=== PATIENT | male | born 1945 | race Caucasian/White ===

== ENCOUNTER → 2017-02-13 | Day surgery (SDC) | payer MEDICARE ==
[~2017-02-13] MED LIST: APPLE CIDER VI500 MG PO; ATORVASTATIN CA10 MG PO; BENZONATATE100 MG PO; CEFTRIAXONE SOD 1 GM/NS 50 ML 50 ML IV ONE; CHLORZOXAZONE500 MG PO; COMBIGAN EYE DRO5 ML OP; DEXAMETHASONE SOD PHOS INJ 4 MG/ML VIAL ONE; DIAZEPAM5 MG PO; DOXYCYCLINE HYC50 MG PO; EPHEDRINE SULFATE INJ 50 MG/10 ML SYR ONE; FENTANYL CITRATE/PF 100MCG/2 ML INJ ONE; LANTUS 3ML100 UNITS/ SC; LECITHIN1200 MG PO; LIDOCAINE HCL 2% LOCAL INJ 5 ML SDV VIAL INJ ONE; LISINOPRIL10 MG PO; LOTEMAX5 ML OP; METFORMIN HCL500 MG PO; MIDAZOLAM HCL 2 MG/2 ML VIAL ONE; MULTIVITAMINS1 EAC6 PO; NAPROXEN250 MG PO; NORCO 5-325 TA1 EACH PO; ONDANSETRON HCL INJ 2 MG/ML VIAL ONE; PROPOFOL IV EMULSION 10 MG/ML 20 ML VIAL ONE; SEVOFLURANE INHAL SOLN 250 ML PEN BTL ONE; STRESS RELIEF PO; SYSTANE 0.3-0.1 EACH OP; VASOPRESSIN INJ 20 UNIT/ML VIAL ONE; VITAMIN D400 UNIT PO; Vit C PO; Vitamin A PO; Vitamin E PO
--- NOTE | 2017-02-13 07:59 | Diagnostic Imaging Report ---
PROCEDURE:X-RAY ABDOMEN - KUB COMPARISON:Abdomen one view 01/30/2017. INDICATIONS:PREOPERATIVE XRAY FOR KIDNEY STONE SURGERY FINDINGS: There is a non-obstructed bowel-gas pattern. 3.9 mm calculus projects over the superior pole the left kidney. There are no calcifications projected over the right renal shadow, expected course of the ureters or bladder. There are no acute osseous abnormalities. The lung bases are clear. CONCLUSION: Left nephrolithiasis. Dictated by: Kody Marino M.D. on 02/13/2017 at 8:07 Electronically approved by: Kody Marino M.D. on 02/13/2017 at 8:07
--- NOTE | 2017-03-28 03:51 | Operative Report ---
DATE OF PROCEDURE: February 13, 2017 PREOPERATIVE DIAGNOSIS: Bilateral nephrolithiasis. POSTOPERATIVE DIAGNOSIS: Bilateral nephrolithiasis. PROCEDURES PERFORMED 1. Staged left-sided extracorporeal shockwave lithotripsy. 2. Supervision of fluoroscopy. No radiologist present. ANESTHESIA: General. COMPLICATIONS: None. CLINICAL SUMMARY: Mino Reyna is a 71-year-old man with bilateral nephrolithiasis. He is brought for ESWL. He is aware of the risks of bleeding, infection, injury to adjacent structures, need for additional procedures, and elected to proceed. OPERATIVE PROCEDURE IN DETAIL: Informed consent was verified. Mino Reyna was properly identified, taken to the operating room, placed on the lithotripsy table in supine position. Anesthesia was uneventfully begun. We could not visualize the right-sided stone. We did visualize in the upper shirin a 5-mm stone on the left-hand side. We proceeded with performing 3000 shocks of lithotripsy with some degree of fragmentation noted fluoroscopically. The patient was then uneventfully reversed from anesthesia and taken to the recovery room in stable condition. There were no complications to the procedure. Patient tolerated the procedure well. Explicit postop instructions were given. We will follow the patient up in the office. Job#: [id number] CF
== END | disposition home or self-care (01) ==
LOC: OR 05:58
PROVIDERS: ATTEND Urology
DX: N20.0 Calculus of kidney (principal); N40.0 Benign prostatic hyperplasia without lower urinary tract symptoms; R35.1 Nocturia; R81 Glycosuria; I10 Essential (primary) hypertension; E11.9 Type 2 diabetes mellitus without complications; Z79.82 Long term (current) use of aspirin; Z84.1 Family history of disorders of kidney and ureter
CPT/HCPCS: 36415; 50590; 74000; 82948; J0696; J1100; J2001; J2250; J2405

== ENCOUNTER 2017-04-04 05:35 | Observation (INO) | payer MEDICARE ==
[2017-04-01 14:42] LABS: BASOPHILS % 0.6 % (0.0-1.0); EOSINOPHILS # (AUTO) 0.1 (0.0-0.4); EOSINOPHILS % 1.7 % (0.0-6.0); HEMATOCRIT 44.3 % (38.2-49.6); HEMOGLOBIN 15.1 g/dL (14.0-18.0); LYMPHOCYTES % 28.3 % (18.0-39.1); MEAN CORPUSCULAR HEMOGLOBIN 31.3 pg (28-32); MEAN CORPUSCULAR HGB CONC 34.1 g/dL (31-35); MEAN CORPUSCULAR VOLUME 91.7 fL (81-99); MONOCYTES # (AUTO) 0.5 (0.2-0.8); MONOCYTES % 7.1 % (4.4-11.3); NEUTROPHILS # (AUTO) 4.4 (2.1-6.9); PLATELET COUNT 314 x10e3/uL (140-360); RED BLOOD COUNT 4.83 x10e6/uL (4.3-5.7); RED CELL DISTRIBUTION WIDTH 12.4 % (11.7-14.4)
--- NOTE | 2017-04-01 14:47 | Diagnostic Imaging Report ---
PROCEDURE: Frontal and lateral views of the chest. COMPARISON: 01/24/17 INDICATIONS: PRE OP SURGERY ON C SPINE SATURDAY FINDINGS: Lines/tubes: None. Lungs: The lungs are well inflated and clear. There is no evidence of pneumonia or pulmonary edema. Pleura: There is no pleural effusion or pneumothorax. Unchanged bilateral upper lung field calcifications, likely calcified pleural plaques. Heart and mediastinum: The heart and the mediastinum are normal. Bones: No acute bony abnormality. IMPRESSION: 1. No acute cardiopulmonary disease. 2. Unchanged bilateral upper lung field calcifications, likely calcified pleural plaques. Dictated by: Cachorro Crowder M.D. on 04/01/2017 at 14:56 Electronically approved by: Cachorro Crowder M.D. on 04/01/2017 at 14:56
[2017-04-01 14:53] LABS: INR 0.78; PROTHROMBIN TIME 11.2 seconds (11.9-14.5)
[2017-04-01 14:54] LABS: PARTIAL THROMBOPLASTIN TIME 25.7 seconds (23.8-35.5)
[2017-04-01 15:25] LABS: ANION GAP 12.9 mmol/L (8-16); BLOOD UREA NITROGEN 14 mg/dL (7-26); BUN/CREATININE RATIO 15 (6-25); CALCIUM 9.6 mg/dL (8.4-10.2); CARBON DIOXIDE 27 mmol/L (22-29); CHLORIDE 102 mmol/L (98-107); CREATININE, SERUM 0.95 mg/dL (0.72-1.25); EST GLOMERULAR FILTRATION RATE > 60 ML/MIN (60-); GLUCOSE 159 mg/dL (74-118); POTASSIUM 3.9 mmol/L (3.5-5.1); SODIUM 138 mmol/L (136-145)
[~2017-04-04] VITALS: Ht 170.2 cm; Wt 81.0 kg
[~2017-04-04 05:35] MED LIST changes: -BENZONATATE100 MG PO; -CEFTRIAXONE SOD 1 GM/NS 50 ML 50 ML IV ONE; -COMBIGAN EYE DRO5 ML OP; -DEXAMETHASONE SOD PHOS INJ 4 MG/ML VIAL ONE; -DOXYCYCLINE HYC50 MG PO; -EPHEDRINE SULFATE INJ 50 MG/10 ML SYR ONE; -FENTANYL CITRATE/PF 100MCG/2 ML INJ ONE; -LANTUS 3ML100 UNITS/ SC; -LIDOCAINE HCL 2% LOCAL INJ 5 ML SDV VIAL INJ ONE; -LOTEMAX5 ML OP; -MIDAZOLAM HCL 2 MG/2 ML VIAL ONE; -NAPROXEN250 MG PO; -ONDANSETRON HCL INJ 2 MG/ML VIAL ONE; -PROPOFOL IV EMULSION 10 MG/ML 20 ML VIAL ONE; -SEVOFLURANE INHAL SOLN 250 ML PEN BTL ONE; -SYSTANE 0.3-0.1 EACH OP; -VASOPRESSIN INJ 20 UNIT/ML VIAL ONE
[2017-04-04] MEDS ORDERED: LOTEMAX5 ML OP (06:20)
[2017-04-04] MEDS ORDERED: DOXYCYCLINE HYC50 MG PO (06:20)
[2017-04-04] MEDS ORDERED: BENZONATATE100 MG PO (06:21)
[2017-04-04] MEDS ORDERED: CHLORZOXAZONE500 MG PO (06:21)
[2017-04-04] MEDS ORDERED: NAPROXEN250 MG PO (06:21)
[2017-04-04] MEDS ORDERED: CEFAZOLIN SOD 1 GM VIAL ONE (06:21)
[2017-04-04] MEDS ORDERED: SYSTANE 0.3-0.1 EACH OP (06:22)
[2017-04-04] MEDS ORDERED: LANTUS 3ML100 UNITS/ SC (06:22)
[2017-04-04] MEDS ORDERED: COMBIGAN EYE DRO5 ML OP (06:23)
[2017-04-04] MEDS ORDERED: BACITRACIN 50,000 UNIT VIAL ONE (06:42)
[2017-04-04] MEDS ORDERED: GELATIN SPONGE SZ 100 ONE (06:42)
[2017-04-04] MEDS ORDERED: THROMBIN FOR SOLN 5,000 UNIT VIAL ONE (06:42)
[2017-04-04] MEDS ORDERED: LIDOCAINE 1% W/EPINEPHRINE 20 ML VIAL ONE (06:42)
[2017-04-04] MEDS ORDERED: ACETAMINOPHEN 1000 MG/100 ML 100 ML IV ONE (07:04)
[2017-04-04] MEDS ORDERED: LIDOCAINE HCL (LTA) 4 ML SOLN ONE (07:05)
[2017-04-04] MEDS ORDERED: ZOLPIDEM TARTRATE 5 MG TAB PO PRN (08:45)
[2017-04-04] MEDS ORDERED: CARISOPRODOL 350 MG TAB PO PRN (08:45)
[2017-04-04] MEDS ORDERED: ACETAMINOPHEN 325 MG TAB PO PRN (08:45)
[2017-04-04] MEDS ORDERED: DEXTROSE 50% SYRINGE 50 ML IV PRN (08:45)
[2017-04-04] MEDS ORDERED: MAGNESIUM/ALUMINUM/SIMETHICONE 30 ML UDC PO PRN (08:45)
[2017-04-04] MEDS ORDERED: ONDANSETRON HCL INJ 2 MG/ML VIAL IV PRN (08:45)
[2017-04-04] MEDS ORDERED: NAPROXEN 250 MG TAB PO PRN (08:45)
[2017-04-04] MEDS ORDERED: MORPHINE SULFATE 5 MG/ML VIAL IM PRN (08:45)
[2017-04-04] MEDS ORDERED: CEPACOL SORE THROAT LOZENGES PO PRN (08:45)
[2017-04-04] MEDS ORDERED: HYDROMORPHONE 2MG/ML INJ IV PRN ×2 (08:45)
[2017-04-04] MEDS ORDERED: PROMETHAZINE HCL (IM) 25 MG/ML VIAL IM PRN (08:45)
[2017-04-04] MEDS ORDERED: LISINOPRIL 10 MG TAB PO SCH (09:00)
[2017-04-04] MEDS ORDERED: FENTANYL CITRATE/PF 100MCG/2 ML INJ ONE ×2 (09:34→18:55)
--- NOTE | 2017-04-04 10:25 | Operative Report ---
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 PROCEDURES 1. C3-4 anterior cervical diskectomy and microsurgical osteophyte resection and allograft fusion, 30641. 2. Preparation of MTF corticocancellous allograft, 16952. 3. C3-4 anterior cervical plating with a Synthes ZPN plate, [id number]. ANESTHESIA: General. INDICATIONS: The patient is a man who presents with multilevel cervical spondylosis, worst at C3-4 and was taken to the operating room for C3-4 anterior cervical decompression and fusion. DESCRIPTION OF PROCEDURE: After induction of general anesthesia, the patient was placed on the operating table in supine position. The right side of the neck was prepped and draped in a sterile fashion. The fluoroscopic C-arm was positioned in cross-table lateral orientation. A transverse incision was created on the right side of the neck superimposed on the C3-4 disk space as determined by fluoroscopy. The platysma was divided in line with the incision. A subplatysmal dissection was carried out. An avascular plane of dissection was developed medial to sternocleidomastoid muscle and was followed medial to the carotid sheath to the anterior border of the cervical spine. The deep cervical fascia was opened. The esophagus was retracted to the left. The attachments of longus colli muscles to the anterolateral aspects of vertebral bodies of C3 and C4 were divided. The anterior longitudinal ligament was resected. Carnation posts were inserted into C3 and C4. The Carnation distractor was used to distract the disk space. The anterior annulus of the disk was incised with a #11 blade and the contents of the disk were thoroughly evacuated with angled curettes and pituitary rongeurs. The posterior osteophytes were meticulously drilled with a 2-mm cutting gualberto under the operating microscope until they were completely removed. The posterior annulus of the disk, herniated disk material, and the posterior longitudinal ligament were resected layer by layer until the dura was fully exposed and decompressed. The medial aspects of uncinate processes were resected bilaterally to further expose and decompress the origins of the corresponding C4 nerve roots. After satisfactory decompression had been achieved, the endplates were prepared for fusion. The disk space was sized and found to be 8 mm in height. A piece of MTF corticocancellous allograft measuring 8 mm in thickness was selected and loaded onto a corresponding Synthes ZPN plate. The construct was then inserted into the C3-4 disk space under lateral fluoroscopic guidance and tapped in place until the anterior margin of the plate was flush with the anterior margin of the vertebral bodies. The plate was then screwed into the endplates of C3 and C4 with 2 pairs of 14-mm screws. All screws were then locked to the appropriate locking screws. An excellent construct was obtained. The wound was copiously irrigated with bacitracin solution. Meticulous hemostasis was secured. Retractor was removed. The platysma was closed with 3-0 Vicryl sutures. The skin was closed with 4-0 Monocryl sutures in subcuticular fashion. Steri-Strips and dressing were applied. The patient was awakened, extubated, and taken to postanesthesia care unit in stable condition. No intraoperative complications were encountered. Estimated blood loss was 10 mL. Job#: [id number] SAK
[2017-04-04 11:25] VITALS: BP 154/83
[2017-04-04 11:36] VITALS: BP 154/83
[2017-04-04] MEDS: LACTATED RINGER'S 1,000 ML IV SCH ×2 (11:55→18:06)
[2017-04-04] MEDS: BENZONATATE 100 MG CAP PO SCH ×3 (11:55→22:08)
[2017-04-04] MEDS: METFORMIN HCL 500 MG TAB PO SCH ×2 (12:32→16:50)
[2017-04-04] MEDS: INSULIN LISPRO 100 UNIT/1 ML 3ML VIAL SQ SCH ×3 (12:32→21:00)
[2017-04-04] MEDS ORDERED: BRIMONIDINE/TIMOLOL (OPTH SOLN 5 ML DRPETTE OP SCH (13:00)
[2017-04-04] MEDS ORDERED: LOTEPREDNOL ETABONATE(OPTH) 5 ML BTL OP SCH (13:00)
[2017-04-04] MEDS: CEFAZOLIN SOD 1 GM VIAL IV SCH ×2 (13:09→22:08)
[2017-04-04] MEDS ORDERED: CEFAZOLIN SOD 1 GM/NS 50ML 50 ML IV SCH (14:00)
[2017-04-04] MEDS: OXYCODONE/ACETAMINOPHEN 5-325 1 EACH TABLET PO PRN (14:55)
[2017-04-04 15:28] VITALS: BP 131/73
[2017-04-04] MEDS ORDERED: ONDANSETRON HCL INJ 2 MG/ML VIAL ONE (18:40)
[2017-04-04] MEDS ORDERED: PROPOFOL IV EMULSION 10 MG/ML 20 ML VIAL ONE (18:40)
[2017-04-04] MEDS ORDERED: GLYCOPYRROLATE INJ 1MG/ 5 ML SYR ONE (18:40)
[2017-04-04] MEDS ORDERED: ROCURONIUM BROMIDE 10 MG/ML 5ML VIAL ONE (18:40)
[2017-04-04] MEDS ORDERED: DEXAMETHASONE SOD PHOS INJ 4 MG/ML VIAL ONE (18:40)
[2017-04-04] MEDS ORDERED: NEOSTIGMINE 5 MG/5ML SYR ONE (18:40)
[2017-04-04] MEDS ORDERED: LIDOCAINE HCL 2% LOCAL INJ 5 ML SDV VIAL INJ ONE (18:40)
[2017-04-04] MEDS ORDERED: PHENYLEPHRINE HCL 1% 10 MG/ML VIAL ONE (18:40)
[2017-04-04] MEDS ORDERED: SEVOFLURANE INHAL SOLN 250 ML PEN BTL ONE (18:40)
[2017-04-04] MEDS ORDERED: EPHEDRINE SULFATE INJ 50 MG/10 ML SYR ONE (18:40)
[2017-04-04] MEDS ORDERED: MIDAZOLAM HCL 2 MG/2 ML VIAL ONE (18:55)
[2017-04-04 19:00] VITALS: BP 129/74
[2017-04-04 20:00] VITALS: BP 129/74
[2017-04-04] MEDS ORDERED: INSULIN DETEMIR 100 UNIT/ML PEN SQ SCH (21:00)
[2017-04-04] MEDS ORDERED: ATORVASTATIN 10 MG TAB PO SCH (21:00)
[2017-04-05] VITALS: BP 135/78
[2017-04-05] MEDS: LACTATED RINGER'S 1,000 ML IV SCH (01:37)
[2017-04-05] MEDS: OXYCODONE/ACETAMINOPHEN 5-325 1 EACH TABLET PO PRN (02:12)
[2017-04-05 05:00] VITALS: BP 121/58
[2017-04-05] MEDS: CEFAZOLIN SOD 1 GM VIAL IV SCH (05:29)
--- NOTE | 2017-04-05 06:45 | Diagnostic Imaging Report ---
C-SPINE 2 VIEWS AP LATERAL Comparison: None Clinical history: Status post surgery, C3-4 spondylosis Findings: Visualization through C7-T1 on lateral view. Straightening of the normal cervical lordosis. Status post C3-4 ACDF. Moderate degenerative changes, worse at C6-T1. Prevertebral soft tissue swelling, likely postsurgical. Impression: Postsurgical changes status post C3-4 ACDF. Signed by: Dr Amber Glasgow MD on 04/05/2017 6:42 AM
[2017-04-05] MEDS: INSULIN LISPRO 100 UNIT/1 ML 3ML VIAL SQ SCH (07:30)
[2017-04-05 08:09] VITALS: BP 133/70
[2017-04-05] MEDS ORDERED: LOTEPREDNOL ETABONATE(OPTH) 5 ML BTL OP SCH (09:00)
== END 2017-04-05 09:51 | disposition home or self-care (01) ==
LOC: OR 05:35 → IMCU 10:56
PROVIDERS: ADMIT Neurological Surgery; ATTEND Neurological Surgery
DX: M47.22 Other spondylosis with radiculopathy, cervical region (principal); M50.11 Cervical disc disorder with radiculopathy, high cervical region; M48.02 Spinal stenosis, cervical region; M25.78 Osteophyte, vertebrae; E11.9 Type 2 diabetes mellitus without complications; Z79.4 Long term (current) use of insulin; I10 Essential (primary) hypertension; J45.909 Unspecified asthma, uncomplicated; E78.5 Hyperlipidemia, unspecified; H40.9 Unspecified glaucoma; Z01.810 Encounter for preprocedural cardiovascular examination; Z01.812 Encounter for preprocedural laboratory examination; Z01.818 Encounter for other preprocedural examination; Z87.891 Personal history of nicotine dependence; Z94.7 Corneal transplant status; Z98.49 Cataract extraction status, unspecified eye
CPT/HCPCS: 20931; 22551; 22845; 36415 ×2; 71046; 72040; 77003; 80048; 82948; 85025; 85610; 85730; 86850; 86900; 88304; 93005; C1713 ×2; C9359; G0378 ×2; J0690 ×2; J1100; J2001; J2250; J2270; J2370; J2405; J7120 ×2

== ENCOUNTER 2017-04-06 17:57 | Emergency (ER) | payer MEDICARE ==
[~2017-04-06] VITALS: Ht 170.2 cm; Wt 80.7 kg
[~2017-04-06 17:57] MED LIST changes: +BENZONATATE100 MG PO; +COMBIGAN EYE DRO5 ML OP; +DOXYCYCLINE HYC50 MG PO; +LANTUS 3ML100 UNITS/ SC; +LOTEMAX5 ML OP; +NAPROXEN250 MG PO; +SYSTANE 0.3-0.1 EACH OP
--- NOTE | 2017-04-06 20:44 | Diagnostic Imaging Report ---
Examination: CT CERVICAL SPINE WITHOUT CONTRAST HISTORY:Fall; right side of neck pop. COMPARISON:Cervical spine x-ray performed 04/05/2017. TECHNIQUE: Multidetector helical axial images were obtained without contrast from the foramen magnum to T1. Coronal and sagittal reformatted images were done. Bone and soft tissue windows were evaluated. FINDINGS: Alignment:Normal alignment with straightening of normal lordosis. Vertebrae: Normal height and density. No acute fracture, infection or neoplasm. Disc space heights: Severely narrowed at C7-T1. Caliber of spinal canal: Developmentally normal. Posterior fossa and craniocervical junction: Foramen magnum patent. No Chiari 1 malformation. Soft tissues: There is a large prevertebral soft tissue edema from C1 through C7 and deep tissue emphysema at C3 and C4 related to recent surgery and the soft tissue edema is unchanged from recent x-ray performed 04/05/2017. Degenerative changes: Anterior cervical discectomy and fusion at C3-C4. Diffuse disc bulge at C5-C6 without canal stenosis. IMPRESSION: 1. No acute fracture. No hardware fracture. 2. Large prevertebral soft tissue edema from C1 through C7 and deep tissue emphysema at C3 and C4 related to recent anterior cervical discectomy and fusion at C3-C4.. Signed by: Dr. Helen Ferguson M.D. on 04/06/2017 8:41 PM
[2017-04-06 21:41] VITALS: BP 145/86
== END 2017-04-06 21:43 | disposition home or self-care (01) ==
LOC: ER 17:57
DX: M54.2 Cervicalgia (principal); S16.1XXA Strain of muscle, fascia and tendon at neck level, initial encounter; Z98.1 Arthrodesis status; E11.9 Type 2 diabetes mellitus without complications; Z87.442 Personal history of urinary calculi
CPT/HCPCS: 72125; 99283

== ENCOUNTER 2024-06-11 05:21 | Observation (INO) | payer MEDICARE ==
[2024-06-10 10:42] LABS: BASOPHILS % 0.4 % (0.0-1.0); EOSINOPHILS # (AUTO) 0.2 (0.0-0.4); EOSINOPHILS % 3.1 % (0.0-6.0); HEMATOCRIT 39.5 % (38.2-49.6); HEMOGLOBIN 13.2 g/dL (14.0-18.0); LYMPHOCYTES # (AUTO) 1.8 (1.0-3.2); LYMPHOCYTES % 25.8 % (18.0-39.1); MEAN CORPUSCULAR HEMOGLOBIN 31.3 pg (28-32); MEAN CORPUSCULAR HGB CONC 33.4 g/dL (31-35); MEAN CORPUSCULAR VOLUME 93.6 fL (81-99); MONOCYTES # (AUTO) 0.5 (0.2-0.8); MONOCYTES % 7.3 % (4.4-11.3); NEUTROPHILS # (AUTO) 4.5 (2.1-6.9); PLATELET COUNT 245 x10e3/uL (140-360); RED BLOOD COUNT 4.22 x10e6/uL (4.3-5.7); RED CELL DISTRIBUTION WIDTH 13.1 % (11.7-14.4); WHITE BLOOD COUNT 7.09 x10e3/uL (4.8-10.8)
[2024-06-10 11:02] LABS: INR 0.83; PROTHROMBIN TIME 11.9 seconds (11.9-14.5)
[2024-06-10 11:03] LABS: PARTIAL THROMBOPLASTIN TIME 27.9 seconds (23.8-35.5)
[2024-06-10 11:06] LABS: ANION GAP 14.5 mmol/L (8-16); CALCIUM 9.6 mg/dL (8.4-10.2); CREATININE, SERUM 1.36 mg/dL (0.72-1.25); POTASSIUM 4.5 mmol/L (3.5-5.1)
[~2024-06-11] VITALS: Ht 165.1 cm; Wt 75.3 kg
[2024-06-11] VITALS (7 sets, daily range): BP systolic 134–150; BP diastolic 72–89; PULSE 75–93; RESP 18–20; TEMP 97.4–98.3; O2SAT 96–99
[~2024-06-11 05:21] MED LIST changes: +AMOXICILLIN500 MG PO; +COQ-10100 MG PO
[2024-06-11] MEDS: LACTATED RINGER'S 1,000 ML ONE (05:57)
[2024-06-11] MEDS: CEFAZOLIN SODIUM 2 GM ONE (05:57)
[2024-06-11] MEDS ORDERED: ROCURONIUM BROMIDE 1 ML IV ONE (07:14)
[2024-06-11] MEDS ORDERED: PROPOFOL IV EMULSION 10 MG/ML 20 ML VIAL ONE (07:14)
[2024-06-11] MEDS ORDERED: ACETAMINOPHEN 1000 MG/100 ML 100 ML IV ONE (07:14)
[2024-06-11] MEDS ORDERED: FENTANYL CITRATE/PF 100MCG/2 ML INJ ONE (07:14)
[2024-06-11] MEDS ORDERED: LIDOCAINE HCL 2% LOCAL INJ 5 ML SDV VIAL INJ ONE (07:14)
[2024-06-11] MEDS ORDERED: SEVOFLURANE INHAL SOLN 250 ML PEN BTL ONE (07:14)
[2024-06-11] MEDS ORDERED: KETAMINE 50MG/5ML SYR ONE (07:15)
[2024-06-11] MEDS ORDERED: LIDOCAINE HCL (LTA) 4 ML SOLN ONE (07:15)
[2024-06-11] MEDS ORDERED: DEXAMETHASONE SOD PHOS INJ 4 MG/ML SDV ONE (08:17)
[2024-06-11] MEDS ORDERED: ONDANSETRON HCL INJ 2MG/ML 2ML 2 MG/ML VIAL ONE (08:17)
[2024-06-11] MEDS ORDERED: SUGAMMADEX SODIUM 200 MG/2 ML VIAL IV ONE (08:42)
[2024-06-11] MEDS ORDERED: EPHEDRINE SULFATE INJ 50 MG/ML VIAL ONE (08:58)
[2024-06-11] MEDS ORDERED: MORPHINE SULFATE 5 MG/ML VIAL IM PRN (09:30)
[2024-06-11] MEDS ORDERED: MAGNESIUM/ALUMINUM/SIMETHICONE 30 ML UDC PO PRN (09:30)
[2024-06-11] MEDS ORDERED: NAPROXEN 250 MG TAB PO SCH (09:30)
[2024-06-11] MEDS ORDERED: CEPACOL SORE THROAT LOZENGES PO PRN (09:30)
[2024-06-11] MEDS ORDERED: PROMETHAZINE HCL (IM) 25 MG/ML VIAL IM PRN (09:30)
[2024-06-11] MEDS ORDERED: ACETAMINOPHEN 325 MG TAB PO PRN (09:30)
[2024-06-11] MEDS ORDERED: ONDANSETRON HCL INJ 2MG/ML 2ML 2 MG/ML VIAL IV PRN (09:30)
[2024-06-11] MEDS: FENTANYL CITRATE/PF 100MCG/2 ML INJ ONE (09:50)
[2024-06-11] MEDS: HYDRALAZINE HCL 20 MG/ML VIAL ONE (09:50)
[2024-06-11] MEDS: LACTATED RINGER'S 1,000 ML IV SCH (11:32)
[2024-06-11] MEDS: HYDROMORPHONE 2MG/ML IV PRN (11:33)
[2024-06-11] MEDS: LOTEPREDNOL ETABONATE(OPTH) 5 ML BTL OP SCH (13:00)
[2024-06-11] MEDS: BRIMONIDINE/TIMOLOL (OPTH SOLN 5 ML DRPETTE OP SCH (15:00)
[2024-06-11] MEDS: OXYCODONE/ACETAMINOPHEN 5-325 1 EACH TABLET PO PRN ×2 (15:32→21:43)
[2024-06-11] MEDS: CARISOPRODOL 350 MG TAB PO PRN (15:35)
[2024-06-11] MEDS: METFORMIN HCL 500 MG TAB PO SCH (16:20)
[2024-06-11] MEDS: DOXYCYCLINE HYCLATE TABLET 100 MG TAB PO SCH (16:20)
[2024-06-11] MEDS ORDERED: ZOLPIDEM TARTRATE 5 MG TAB PO PRN (21:00)
[2024-06-11] MEDS: DIAZEPAM 5 MG TAB PO SCH (21:05)
[2024-06-11] MEDS: LISINOPRIL 10 MG TAB PO SCH (21:11)
[2024-06-11] MEDS: INSULIN GLARGINE 100 UNITS/ML VIAL SC SCH (21:19)
[2024-06-12 04:56] VITALS: BP 144/72; PULSE 75; RESP 18; TEMP 98.3; O2SAT 97
[2024-06-12 05:13] VITALS: BP 144/72; PULSE 75; RESP 18; TEMP 98.3; O2SAT 97
[2024-06-12 06:13] VITALS: BP 125/75; PULSE 66; RESP 18; TEMP 98.3; O2SAT 100
[2024-06-12 08:36] VITALS: BP 123/65; PULSE 66; RESP 18; TEMP 97.9; O2SAT 97
[2024-06-12 08:37] VITALS: BP 123/65; PULSE 66; RESP 18; TEMP 97.9; O2SAT 97
[2024-06-12] MEDS: NON-FORMULARY MEDICATION (Ubidecarenone (Coq-10) 100 MG) PO SCH (09:00)
== END 2024-06-12 10:25 | disposition home or self-care (01) ==
LOC: OR 05:21 → PACU V 09:21 → MED/SURG 11:06
PROVIDERS: ADMIT Neurological Surgery; ATTEND Neurological Surgery
DX: M50.122 Cervical disc disorder at C5-C6 level with radiculopathy (principal); E11.9 Type 2 diabetes mellitus without complications; E78.5 Hyperlipidemia, unspecified; Z79.84 Long term (current) use of oral hypoglycemic drugs; J45.909 Unspecified asthma, uncomplicated; H40.9 Unspecified glaucoma
CPT/HCPCS: 20931; 22551; 22845; 36415 ×2; 71046; 72040; 80048; 82948; 85025; 85610; 85730; 86850; 86900; 88304; 93005; C1713 ×2; G0378 ×2; J0131; J0360; J0690 ×2; J1100; J1171; J2003; J2405; J2704; J3010; J7121; 76000

== ENCOUNTER → 2024-08-28 | Day surgery (SDC) | payer MEDICARE ==
[2024-08-27 11:07] LABS: BASOPHILS % 0.5 % (0.0-1.0); EOSINOPHILS # (AUTO) 0.2 (0.0-0.4); EOSINOPHILS % 2.4 % (0.0-6.0); HEMATOCRIT 38.1 % (38.2-49.6); HEMOGLOBIN 12.7 g/dL (14.0-18.0); LYMPHOCYTES # (AUTO) 1.4 (1.0-3.2); MEAN CORPUSCULAR HEMOGLOBIN 31.4 pg (28-32); MEAN CORPUSCULAR HGB CONC 33.3 g/dL (31-35); MEAN CORPUSCULAR VOLUME 94.3 fL (81-99); MONOCYTES # (AUTO) 0.5 (0.2-0.8); MONOCYTES % 7.2 % (4.4-11.3); NEUTROPHILS # (AUTO) 4.3 (2.1-6.9); NEUTROPHILS % 67.6 % (38.7-80.0); PLATELET COUNT 271 x10e3/uL (140-360); RED BLOOD COUNT 4.04 x10e6/uL (4.3-5.7); RED CELL DISTRIBUTION WIDTH 13.7 % (11.7-14.4); WHITE BLOOD COUNT 6.35 x10e3/uL (4.8-10.8)
[2024-08-27 11:34] LABS: ANION GAP 15.1 mmol/L (8-16); CALCIUM 8.9 mg/dL (8.4-10.2); CREATININE, SERUM 1.21 mg/dL (0.72-1.25); POTASSIUM 4.1 mmol/L (3.5-5.1)
[~2024-08-28] MED LIST changes: +ACYCLOVIR200 MG PO; +ADVIL PM CAPLE1 EACH PO; +APETIGEN P12.5 MG/15 PO; +ATORVASTATIN CA20 MG PO; +BEET ROOT500 MG PO; +CYCLOBENZAPRINE10 MG PO; +DEXAMETHASONE SOD PHOS INJ 4 MG/ML SDV ONE; +FENTANYL CITRATE/PF 100MCG/2 ML INJ ONE; +HYDRALAZINE HCL 20 MG/ML VIAL ONE; +IVERMECTIN PO; +LIDOCAINE HCL 2% LOCAL INJ 5 ML SDV VIAL INJ ONE; +MEBENDAZOLE PO; +MELATONIN3 MG PO; +ONDANSETRON HCL INJ 2MG/ML 2ML 2 MG/ML VIAL ONE; +PROPOFOL IV EMULSION 50 ML IV ONE; +VITAMIN C ROSE HIPS PO; +VITAMIN E200 UNI3 PO
[2024-08-28] MEDS: CEFTRIAXONE 1 GM VIAL ONE (09:42)
[2024-08-28] MEDS: SODIUM CHLORIDE 0.9% 1000ML 1,000 ML ONE (09:42)
[2024-08-28] MEDS: PHENAZOPYRIDINE HCL 100 MG TAB ONE (12:01)
[2024-08-28 12:40] VITALS: BP 167/87; PULSE 78; RESP 16; O2SAT 98
== END | disposition home or self-care (01) ==
LOC: OR 08:52
PROVIDERS: ATTEND Urology
DX: N20.0 Calculus of kidney (principal); Z96.0 Presence of urogenital implants; C61 Malignant neoplasm of prostate; E11.9 Type 2 diabetes mellitus without complications; I10 Essential (primary) hypertension; E78.00 Pure hypercholesterolemia, unspecified; J44.9 Chronic obstructive pulmonary disease, unspecified; Z77.090 Contact with and (suspected) exposure to asbestos; F41.9 Anxiety disorder, unspecified; M54.9 Dorsalgia, unspecified; R42 Dizziness and giddiness; M06.9 Rheumatoid arthritis, unspecified; H54.8 Legal blindness, as defined in USA; K57.90 Diverticulosis of intestine, part unspecified, without perforation or abscess without bleeding; F17.200 Nicotine dependence, unspecified, uncomplicated; Z01.812 Encounter for preprocedural laboratory examination; Z01.818 Encounter for other preprocedural examination; Z79.84 Long term (current) use of oral hypoglycemic drugs; Z79.4 Long term (current) use of insulin; Z79.899 Other long term (current) drug therapy
CPT/HCPCS: 36415; 50590; 74018; 80048; 82948; 85025; 87086; C1758; C2617; J0360; J0696; J1100; J2003; J2405; J7030

== ENCOUNTER → 2024-10-09 | Day surgery (SDC) | payer MEDICARE ==
[2024-10-07 11:14] LABS: BASOPHILS % 0.6 % (0.0-1.0); EOSINOPHILS % 4.0 % (0.0-6.0); LYMPHOCYTES % 23.5 % (18.0-39.1); MONOCYTES % 7.1 % (4.4-11.3); NEUTROPHILS % 64.5 % (38.7-80.0); RED CELL DISTRIBUTION WIDTH 13.1 % (11.7-14.4)
[2024-10-07 11:57] LABS: EST GLOMERULAR FILTRATION RATE 65.0 ML/MIN (>=60)
[~2024-10-09] MED LIST changes: +ACETAMINOPHEN 1000 MG/100 ML 100 ML IV ONE; +EPHEDRINE SULFATE INJ 50 MG/ML VIAL ONE; -HYDRALAZINE HCL 20 MG/ML VIAL ONE; +PROPOFOL IV EMULSION 10 MG/ML 20 ML VIAL ONE; -PROPOFOL IV EMULSION 50 ML IV ONE; +SEVOFLURANE INHAL SOLN 250 ML PEN BTL ONE
[2024-10-09] MEDS: CEFTRIAXONE 1 GM VIAL ONE (10:20)
[2024-10-09] MEDS: SODIUM CHLORIDE 0.9% 1000ML 1,000 ML ONE (10:20)
[2024-10-09] MEDS: GENTAMICIN 80MG/NS 100 ML 200 ML IV ONE (10:21)
[2024-10-09] MEDS: PHENAZOPYRIDINE HCL 100 MG TAB ONE (12:30)
[2024-10-09 13:00] VITALS: BP 146/78; PULSE 72; RESP 16; O2SAT 99
== END | disposition home or self-care (01) ==
LOC: OR 08:57
PROVIDERS: ATTEND Urology
DX: N20.0 Calculus of kidney (principal); N40.1 Benign prostatic hyperplasia with lower urinary tract symptoms; R35.1 Nocturia; R39.14 Feeling of incomplete bladder emptying; I10 Essential (primary) hypertension; E11.9 Type 2 diabetes mellitus without complications; E78.00 Pure hypercholesterolemia, unspecified; G89.29 Other chronic pain; M54.9 Dorsalgia, unspecified; Z01.810 Encounter for preprocedural cardiovascular examination; Z01.812 Encounter for preprocedural laboratory examination; Z79.891 Long term (current) use of opiate analgesic; Z79.1 Long term (current) use of non-steroidal anti-inflammatories (NSAID); Z79.4 Long term (current) use of insulin; Z79.84 Long term (current) use of oral hypoglycemic drugs; Z87.891 Personal history of nicotine dependence
CPT/HCPCS: 36415; 74018; 74420; 80048; 82948; 84550; 85025; 87086; 88300; 93005; C1758; C1769; J0696; J1100; J1580; J2003; J2405; J7030